=== PATIENT | male | born 1955 | race Caucasian/White ===

== ENCOUNTER 2017-04-19 13:42 | Observation (INO) | payer OTHER ==
[~2017-04-19] VITALS: Ht 172.7 cm; Wt 77.5 kg
[~2017-04-19 13:42] MED LIST: FENO50TA PO; NEXI40CA PO; NORC7.5T PO; PRAV10 PO; WALKER STANDARD; XARE10TA PO
[2017-04-19 13:43] VITALS: BP 111/66; PULSE 84; RESP 18; TEMP 98.4; O2SAT 96
[2017-04-19] MEDS ORDERED: SODIUM CHLORIDE 0.9% FLUSH 10 ML FLUSH IVF PRN (14:45)
[2017-04-19] MEDS ORDERED: SODIUM CHLOR 0.9% 1000 ML INJ 1,000 ML IV ONE (14:45)
[2017-04-19 14:59] VITALS: BP_SYST 102; BP_SYST 104; BP_SYST 112; BP_DIAS 57; BP_DIAS 58; BP_DIAS 65; RESP 18
[2017-04-19 15:03] VITALS: BP 104/58; PULSE 74; O2SAT 98
--- NOTE | 2017-04-19 15:15 | RADRPT ---
EXAM DATE/TIME: 04/19/2017 14:46 [facility] COMPARISON: CHEST SINGLE AP, August 20, 2015, 12:25. INDICATIONS : Chest pain. MEDICAL HISTORY : Gastroesophageal reflux disease. Hypercholesterolemia. SURGICAL HISTORY : Inguinal hernia repair. Tonsillectomy. ENCOUNTER: Initial ACUITY: 1 day PAIN SCORE: 5/10 LOCATION: Bilateral chest FINDINGS: Portable AP view of the chest demonstrates a normal-sized cardiac silhouette. No effusion, consolidat ion, or pneumothorax is visualized. The bones and soft tissues demonstrate no acute abnormality. EKG lines overlie the patient. CONCLUSION: No acute cardiopulmonary abnormality is identified. Ike Swain MD on April 19, 2017 at 15:13 Board Certified Radiologist. This report was verified electronically.
[2017-04-19 15:27] LABS: AUTOMATED NEUTROPHIL # 7.6 TH/MM3 (1.8-7.7); BASOPHIL % 0.2 % (0.0-2.0); EOSINOPHIL % 0.4 % (0.0-4.0); HEMATOCRIT 39.5 % (39.0-51.0); HEMO FLAGS DIFF FINAL; LYMPH % 11.8 % (9.0-44.0); LYMPHOCYTE # 1.1 TH/MM3 (1.0-4.8); MEAN CELL VOLUME 94.9 FL (80.0-100.0); MEAN CORPUSCULAR HEMOGLOBIN 32.6 PG (27.0-34.0); MEAN CORPUSCULAR HGB CONC 34.3 % (32.0-36.0); MONO % 6.7 % (0.0-8.0); NEUT % 80.9 % (16.0-70.0); PLATELET COUNT 244 TH/MM3 (150-450); RED BLOOD COUNT 4.17 MIL/MM3 (4.50-5.90); RED CELL DISTRIBUTION WIDTH 13.4 % (11.6-17.2); WHITE BLOOD COUNT 9.3 TH/MM3 (4.0-11.0)
[2017-04-19 15:41] LABS: ALT (GPT) 60 U/L (12-78); ANION GAP 8 MEQ/L (5-15); AST (GOT) 30 U/L (15-37); BICARBONATE 24.1 MEQ/L (21.0-32.0); BLOOD UREA NITROGEN 27 MG/DL (7-18); CHLORIDE 108 MEQ/L (98-107); GLOMERULAR FILTRATION RATE 77 ML/MIN (>89); POTASSIUM 3.9 MEQ/L (3.5-5.1); SODIUM (NA) 140 MEQ/L (136-145)
[2017-04-19 15:45] LABS: ALKALINE PHOSPHATASE 56 U/L (45-117); TOTAL BILIRUBIN ADULT 0.3 MG/DL (0.2-1.0)
[2017-04-19 15:46] LABS: APTT (PATIENT) 21.4 SEC (24.3-30.1); PROTHROMBIN TIME - PATIENT 10.6 SEC (9.8-11.6)
[2017-04-19] MEDS ORDERED: NALOXONE HCL 0.4 MG/ML AMP IV PUSH PRN (16:00)
[2017-04-19] MEDS ORDERED: ONDANSETRON HCL 4 MG/2 ML VIAL IVP PRN (16:00)
[2017-04-19] MEDS ORDERED: ACETAMINOPHEN 325 MG TAB PO PRN (16:00)
[2017-04-19] MEDS ORDERED: SODIUM CHLORIDE 0.9% FLUSH 10 ML FLUSH IV FLUSH PRN (16:00)
[2017-04-19] MEDS ORDERED: MAGNESIUM HYDROXIDE SUSP 30 ML CUP PO PRN (16:00)
--- NOTE | 2017-04-19 16:03 | PD ---
HPI Chief Complaint: Chest Pain Time Seen by Provider: 14:26 Travel History International Travel<30 days: No Contact w/Intl Traveler<30days: No Traveled to known affect area: No History of Present Illness HPI This 61-year-old man, otherwise fairly healthy, presents to the emergency department complaining of severe chest pain as well some dizziness and near syncope. He states his symptoms been ongoing for couple weeks of intermittent dizziness. He didn't really have chest pain. Today at work he started getting a lot of dizziness lightheadedness and near syncope associated with severe chest pain and. He did just start prazosin today for the first time. History Past Medical History Narrative Medical Hypertension hyperlipidemia GERD Influenza Vaccination: No Social History Alcohol Use: Yes Tobacco Use: No Allergies-Medications (Allergen,Severity, Reaction): Coded Allergies: No Known Allergies (Verified , 01/18/14) Reported Meds & Prescriptions Reported Meds & Active Scripts Active Walker Standard (Device) Device 1 Ea Reported [place] 7.5/325 (Hydrocodone-Acetaminophen) [id number]/7.5 Hydrocodone Tab 1 Tab PO Q4-6H Xarelto (Rivaroxaban) 10 Mg Tab 10 Mg PO DAILY Tricor (Fenofibrate) 145 Mg Tab 145 Mg PO DAILY Pravastatin Sodium 10 Mg Tab 10 Mg PO DAILY Nexium (Esomeprazole Magnesium) 40 Mg Cap 40 Mg PO DAILY Review of Systems Except as stated in HPI: all other systems reviewed are Neg Physical Exam Narrative GENERAL: 60-year-old man, n there is a little bit ill. Skin: Clammy. O acute distress. SKIN: Focused skin assessment warm/dry. HEAD: Atraumatic. Normocephalic. EYES: Pupils equal and round. No scleral icterus. No injection or drainage. ENT: No nasal bleeding or discharge. Mucous membranes pink and moist. NECK: Trachea midline. No JVD. CARDIOVASCULAR: Regular rate and rhythm. Systolic heart murmur heard best on the right sternal border. RESPIRATORY: No accessory muscle use. Clear to auscultation. Breath sounds equal bilaterally. GASTROINTESTINAL: Abdomen soft, non-tender, nondistended. Hepatic and splenic margins not palpable. MUSCULOSKELETAL: No obvious deformities. No edema. NEUROLOGICAL: Awake and alert. No obvious cranial nerve deficits. Motor grossly within normal limits. Normal speech. PSYCHIATRIC: Appropriate mood and affect; insight and judgment normal. Data Data Last Documented VS Vital Signs Date Time Temp Pulse Resp B/P (MAP) Pulse Ox O2 Delivery O2 Flow Rate FiO2 04/19/17 15:03 74 104/58 (73) 04/19/17 15:03 98 04/19/17 15:03 Room Air 04/19/17 14:59 18 18 18 04/19/17 13:43 98.4 Orders Orders Electrocardiogram (04/19/17 ) Electrocardiogram (04/19/17 14:42) Complete Blood Count With Diff (04/19/17 14:42) Comprehensive Metabolic Panel (04/19/17 14:42) Magnesium (Mg) (04/19/17 14:42) Prothrombin Time / Inr (Pt) (04/19/17 14:42) Act Partial Throm Time (Ptt) (04/19/17 14:42) Troponin I (04/19/17 14:42) Chest, Single Ap (04/19/17 14:42) Ecg Monitoring (04/19/17 14:42) Bilateral Bp Monitoring (04/19/17 14:42) Iv Access Insert/Monitor (04/19/17 14:42) Oximetry (04/19/17 14:42) Oxygen Administration (04/19/17 14:42) Sodium Chloride 0.9% Flush (Ns Flush) (04/19/17 14:45) Sodium Chlor 0.9% 1000 Ml Inj (Ns 1000 M (04/19/17 14:45) Orthostatic Vital Signs (04/19/17 14:42) Labs Laboratory Tests Test 04/19/17 14:45 White Blood Count 9.3 TH/MM3 Red Blood Count 4.17 MIL/MM3 Hemoglobin 13.6 GM/DL Hematocrit 39.5 % Mean Corpuscular Volume 94.9 FL Mean Corpuscular Hemoglobin 32.6 PG Mean Corpuscular Hemoglobin Concent 34.3 % Red Cell Distribution Width 13.4 % Platelet Count 244 TH/MM3 Mean Platelet Volume 7.7 FL Neutrophils (%) (Auto) 80.9 % Lymphocytes (%) (Auto) 11.8 % Monocytes (%) (Auto) 6.7 % Eosinophils (%) (Auto) 0.4 % Basophils (%) (Auto) 0.2 % Neutrophils # (Auto) 7.6 TH/MM3 Lymphocytes # (Auto) 1.1 TH/MM3 Monocytes # (Auto) 0.6 TH/MM3 Eosinophils # (Auto) 0.0 TH/MM3 Basophils # (Auto) 0.0 TH/MM3 CBC Comment DIFF FINAL Differential Comment Prothrombin Time 10.6 SEC Prothromb Time International Ratio 1.0 RATIO Activated Partial Thromboplast Time 21.4 SEC Blood Urea Nitrogen 27 MG/DL Creatinine 0.98 MG/DL Random Glucose 124 MG/DL Total Protein 6.6 GM/DL Albumin 3.7 GM/DL Calcium Level 8.8 MG/DL Magnesium Level 2.0 MG/DL Alkaline Phosphatase 56 U/L Aspartate Amino Transf (AST/SGOT) 30 U/L Alanine Aminotransferase (ALT/SGPT) 60 U/L Total Bilirubin 0.3 MG/DL Sodium Level 140 MEQ/L Potassium Level 3.9 MEQ/L Chloride Level 108 MEQ/L Carbon Dioxide Level 24.1 MEQ/L Anion Gap 8 MEQ/L Estimat Glomerular Filtration Rate 77 ML/MIN Troponin I LESS THAN 0.02 NG/ML MDM Medical Decision Making Medical Screen Exam Complete: Yes Emergency Medical Condition: Yes Interpretation(s) My review of EKG: Normal sinus rhythm with marked sinus arrhythmia, normal axis , normal intervals, no acute ischemia. LABS: CBC unremarkable. CMP unremarkable, mildly elevated BUN. Troponins negative. Chest x-rays unremarkable. Differential Diagnosis Aortic stenosis, adverse effect of alpha manda, ACS, dehydration, orthostasis , other Narrative Course Medical decision making INITIAL: 58-year-old male presents with severe chest associated with near syncopal symptoms and lightheadedness/dizziness. Is a systolic murmur that is moderate, possibly aortic stenosis. Possible orthostasis. Spoke with Dr. Mason, with [facility], will admit patient for further evaluation. Diagnosis Primary Impression: Chest pain Additional Impression: Near syncope Admitting Information Admitting Physician Requests: Tejas Das MD Apr 19, 2017 16:03
[2017-04-19] MEDS ORDERED: NEXI40CA PO (16:08)
[2017-04-19] MEDS ORDERED: PANT20TA2 PO (16:08)
[2017-04-19 18:00] VITALS: BP 147/67; PULSE 63; RESP 20; TEMP 98; O2SAT 97
--- NOTE | 2017-04-19 18:45 | HHI.HP ---
HPI Service [facility] Hospitalists Primary Care Physician Patrick Reinoso, DO Admission Diagnosis Chest Pain, Near Syncope Chief Complaint: Chest pain with near syncope Travel History International Travel<30 Days: No Contact w/Intl Traveler <30 Da: No Traveled to Known Affected Are: No History of Present Illness This is a 61-year-old male patient with past medical history which includes allergic rhinitis, GERD, Sena's esophagitis, alcohol abuse, BPH with obstruction, mixed hyperlipidemia, HTN, osteoporotic arthritis of the hip and asthma. Patient since the emergency department today because of severe chest pain. Patient reports he has had intermitted dizziness for the past couple of weeks. Today at work he started getting a lot of dizziness, lightheadedness and near syncope associated with severe left side chest pain. Patient did not have full syncopal episode, there was no LOC. He did just start prazosin today for the first time. Patient denies LOC, fever, chills, cough, shortness of breath or palpitations. Review of Systems Constitutional: DENIES: Fatigue, Fever, Chills Eyes: DENIES: Blurred vision, Diplopia, Vision loss Respiratory: DENIES: Cough, Sputum production, Shortness of breath Cardiovascular: COMPLAINS OF: Chest pain, Syncope (near syncope), DENIES: Palpitations, Dyspnea on Exertion, Lower Extremity Edema Gastrointestinal: DENIES: Abdominal pain, Nausea, Vomiting Neurologic: DENIES: Abnormal gait, Headache, Speech Problems Psychiatric: DENIES: Anxiety, Confusion, Mood changes Past Family Social History Past Medical History allergic rhinitis, GERD, Sena's esophagitis, alcohol abuse, BPH with obstruction, mixed hyperlipidemia osteoporotic arthritis of the hip and asthma. Past Surgical History Panendoscopy with colonoscopy 2008, bilateral renal artery. 2008 and 1990 Reported Medications Walker Standard (Device) Device 1 Ea Pantoprazole (Pantoprazole Sodium) 20 Mg Tab 20 Mg PO DAILY Nexium (Esomeprazole DR) 40 Mg Capdr 40 Mg PO DAILY [place] 7.5-325 mg (Hydrocodone-Acetaminophen 7.5-325 mg) [id number]/7.5 Hydrocodone Tab 1 Tab PO Q4-6H Xarelto (Rivaroxaban) 10 Mg Tab 10 Mg PO DAILY Tricor (Fenofibrate) 145 Mg Tab 145 Mg PO DAILY Pravastatin Sodium (Pravastatin Sod) 10 Mg Tab 10 Mg PO DAILY Nexium (Esomeprazole Magnesium) 40 Mg Cap 40 Mg PO DAILY Allergies: Coded Allergies: No Known Allergies (Verified , 01/18/14) Active Ordered Medications Current Medications Medications (Trade) Dose Ordered Sig/Noemy Route Start Time Stop Time Status Last Admin (NS Flush) 2 ml UNSCH PRN IV FLUSH 04/19/17 16:00 (NS Flush) 2 ml BID IV FLUSH 04/19/17 21:00 (Tylenol) 650 mg Q4H PRN PO 04/19/17 16:00 (Zofran Inj) 4 mg Q6H PRN IVP 04/19/17 16:00 (Narcan Inj) 0.4 mg UNSCH PRN IV PUSH 04/19/17 16:00 (Milk Of Magnesia Liq) 30 ml Q12H PRN PO 04/19/17 16:00 (Pravachol) 10 mg DAILY PO 04/20/17 09:00 (Protonix) 40 mg DAILY PO 04/20/17 09:00 Family History Father at 53 secondary to [place] CAD Social History Patient quit smoking in 1997 prior to that smoked 2 packs a day for 8 years Physical Exam Vital Signs Vital Signs Date Time Temp Pulse Resp B/P (MAP) Pulse Ox O2 Delivery O2 Flow Rate FiO2 04/19/17 18:00 98.0 63 20 147/67 (93) 97 04/19/17 15:03 74 104/58 (73) 04/19/17 15:03 98 04/19/17 15:03 Room Air 04/19/17 14:59 70 18 102/58 (73) 77 18 112/65 (81) 90 18 104/57 (73) 04/19/17 14:59 70 16 98 Room Air 04/19/17 13:43 98.4 84 18 111/66 (81) 96 Room Air Physical Exam GENERAL: This is a well-nourished, well-developed patient, in no apparent distress. SKIN: No rashes, ecchymoses or lesions. Cool and dry. HEAD: Atraumatic. Normocephalic. No temporal or scalp tenderness. EYES: Extraocular motions intact. No scleral icterus. No injection or drainage. CARDIOVASCULAR: Regular rate and rhythm RESPIRATORY: Clear to auscultation. Breath sounds equal bilaterally. GASTROINTESTINAL: Abdomen soft, non-tender, nondistended. No guarding. MUSCULOSKELETAL: Extremities without clubbing, cyanosis, or edema. No joint tenderness, effusion, or edema noted. No calf tenderness. Negative Homans sign bilaterally. NEUROLOGICAL: Awake and alert. No focal deficits noted. Motor and sensory grossly within normal limits. Five out of 5 muscle strength in all muscle groups. Normal speech. Laboratory Laboratory Tests Test 04/19/17 14:45 White Blood Count 9.3 Red Blood Count 4.17 Hemoglobin 13.6 Hematocrit 39.5 Mean Corpuscular Volume 94.9 Mean Corpuscular Hemoglobin 32.6 Mean Corpuscular Hemoglobin Concent 34.3 Red Cell Distribution Width 13.4 Platelet Count 244 Mean Platelet Volume 7.7 Neutrophils (%) (Auto) 80.9 Lymphocytes (%) (Auto) 11.8 Monocytes (%) (Auto) 6.7 Eosinophils (%) (Auto) 0.4 Basophils (%) (Auto) 0.2 Neutrophils # (Auto) 7.6 Lymphocytes # (Auto) 1.1 Monocytes # (Auto) 0.6 Eosinophils # (Auto) 0.0 Basophils # (Auto) 0.0 CBC Comment DIFF FINAL Differential Comment Prothrombin Time 10.6 Prothromb Time International Ratio 1.0 Activated Partial Thromboplast Time 21.4 Blood Urea Nitrogen 27 Creatinine 0.98 Random Glucose 124 Total Protein 6.6 Albumin 3.7 Calcium Level 8.8 Magnesium Level 2.0 Alkaline Phosphatase 56 Aspartate Amino Transf (AST/SGOT) 30 Alanine Aminotransferase (ALT/SGPT) 60 Total Bilirubin 0.3 Sodium Level 140 Potassium Level 3.9 Chloride Level 108 Carbon Dioxide Level 24.1 Anion Gap 8 Estimat Glomerular Filtration Rate 77 Troponin I LESS THAN 0.02 Result Diagram: 04/19/175 04/19/171444 Imaging Last Impressions Chest X-Ray 04/19/17 144 Signed Impressions: Service Date/Time: Wednesday, April 19, 2017 14:46 - CONCLUSION: No acute cardiopulmonary abnormality is identified. MD Gypsy Webb VTE Risk Assessment Caprini VTE Risk Assessment: No/Low Risk (score <= 1) Caprini Risk Assessment Model Point Value = 1 Point Value = 2 Point Value = 3 Point Value = 5 Age 41-60 Minor surgery BMI > 25 kg/m2 Swollen legs Varicose veins or History of unexplained or recurrent spontaneous Oral contraceptives or hormone replacement Sepsis (< 1 month) Serious lung disease, including pneumonia (< 1 month) Abnormal pulmonary function Acute myocardial infarction Congestive heart failure (< 1 month) History of inflammatory bowel disease Medical patient at bed rest Age 61-74 Arthroscopic surgery Major open surgery (> 45 min) Laparoscopic surgery (> 45 min) Malignancy Confined to bed (> 72 hours) Immobilizing plaster cast Central venous access Age >= 75 History of VTE Family history of VTE Factor V Leiden Prothrombin [id number] Lupus anticoagulant Anticardiolipin antibodies Elevated serum homocysteine Heparin-induced thrombocytopenia Other congenital or acquired thrombophilia Stroke (< 1 month) Elective arthroplasty Hip, pelvis, or leg fracture Acute spinal cord injury (< 1 month) Prophylaxis Regimen Total Risk Factor Score Risk Level Prophylaxis Regimen 0-1 Low Early ambulation 2 Moderate Order ONE of the following: *Sequential Compression Device (SCD) *Heparin 5000 units SQ BID 3-4 Higher Order ONE of the following medications: *Heparin 5000 units SQ TID *Enoxaparin/Lovenox 40 mg SQ daily (WT < 150 kg, CrCl > 30 mL/min) *Enoxaparin/Lovenox 30 mg SQ daily (WT < 150 kg, CrCl > 10-29 mL/min) *Enoxaparin/Lovenox 30 mg SQ BID (WT < 150 kg, CrCl > 30 mL/min) AND/OR *Sequential Compression Device (SCD) 5 or more Highest Order ONE of the following medications: *Heparin 5000 units SQ TID (Preferred with Epidurals) *Enoxaparin/Lovenox 40 mg SQ daily (WT < 150 kg, CrCl > 30 mL/min) *Enoxaparin/Lovenox 30 mg SQ daily (WT < 150 kg, CrCl > 10-29 mL/min) *Enoxaparin/Lovenox 30 mg SQ BID (WT < 150 kg, CrCl > 30 mL/min) AND *Sequential Compression Device (SCD) Assessment and Plan Problem List: (1) Chest pain ICD Codes: R07.9 - Chest pain, unspecified Status: Acute Plan: initial troponin <0.02 continue serial troponin initial EKG reviewed and reveals: SR rate 68 bpm, no acute ischemic changes continue serial EKG CXR reviewed and reveals: No acute cardiopulmonary abnormality is identified Continue pravastatin 10 mg PO daily aspirin daily Lipid profile ordered Continuous cardiac telemetry 2 D echocardiogram pending (2) Near syncope ICD Codes: R55 - Syncope and collapse Status: Acute Plan: Patient started just start prazosin today for the first time. Hold prazosin carotid US pending Orthostatic BP Patient has received 2 L NS while in ER PT eval requested see above (3) Murmur, cardiac ICD Codes: R01.1 - Cardiac murmur, unspecified Plan: Patient with new cardiac murmur 2-D echocardiogram ordered Assessment and Plan Patient examined. Assessment and plan formulated with Luli Lentz PA-C. I agree with the above. Luli Lentz Apr 19, 2017 18:45 Pepe Mason DO Apr 20, 2017 12:00
[2017-04-19] MEDS: SODIUM CHLORIDE 0.9% FLUSH 10 ML FLUSH IV FLUSH SCH (20:24)
[2017-04-19] MEDS: ASPIRIN 81 MG CHEW TAB CHEW SCH (20:24)
[2017-04-19 20:44] VITALS: BP 131/77; PULSE 65; RESP 17; TEMP 98.4; O2SAT 96
--- NOTE | 2017-04-19 22:40 | RADRPT ---
EXAM DATE/TIME: 04/19/2017 21:55 [facility] COMPARISON: No previous studies available for comparison. INDICATIONS : Syncope. MEDICAL HISTORY : Hypercholesterolemia. Gastroesophageal reflux disease. Syncope. Arthritis. SURGICAL HISTORY : Inguinal hernia repair. Tonsillectomy. Left hip surgery. Lasix. ENCOUNTER: Initial ACUITY: 1 day PAIN SCORE: 0/10 LOCATION: Bilateral neck PEAK SYSTOLIC VELOCITIES (cm/sec): ICA/CCA RATIO: Right: 0.5 Left: 0.6 ICA: Right: 67 Left: 72 CCA: Right: 128 Left: 117 ECA: Right: 88 Left: 98 VERTEBRAL: Right: 44 antegrade Left: 57 antegrade Elevated flow velocities and ICA/CCA ratios have been found to correlate with increased degrees of vessel stenosis, calculated as percentage of diameter relative to a normal segment of distal ICA/CCA FINDINGS: RIGHT CAROTID: No significant stenosis is visualized. The waveforms are within normal limits. LEFT CAROTID: No significant stenosis is visualized. The waveforms are within normal limits. VERTEBRAL ARTERIES: Antegrade flow is seen in both vertebral arteries. MISCELLANEOUS: None. CONCLUSION: No hemodynamically significant stenosis. Alden Osorio MD on April 19, 2017 at 22:37 Board Certified Radiologist. This report was verified electronically.
[2017-04-19 23:09] LABS: CREATINE KINASE 91 U/L (39-308)
[2017-04-19 23:18] VITALS: BP 118/68; PULSE 65; RESP 17; TEMP 98.2; O2SAT 96
[2017-04-20 04:05] VITALS: BP 110/62; PULSE 64; RESP 17; TEMP 98.2; O2SAT 96
[2017-04-20 04:47] LABS: ANION GAP 8 MEQ/L (5-15); BICARBONATE 24.4 MEQ/L (21.0-32.0); BLOOD UREA NITROGEN 18 MG/DL (7-18); CHLORIDE 111 MEQ/L (98-107); GLOMERULAR FILTRATION RATE 95 ML/MIN (>89); POTASSIUM 3.9 MEQ/L (3.5-5.1); SODIUM (NA) 143 MEQ/L (136-145)
[2017-04-20 04:53] LABS: CREATINE KINASE 84 U/L (39-308)
[2017-04-20 08:13] VITALS: BP 123/84; PULSE 63; RESP 20; TEMP 98.2; O2SAT 96
[2017-04-20] MEDS ORDERED: PRAVASTATIN SOD 10 MG TAB PO SCH (09:00)
[2017-04-20] MEDS ORDERED: PANTOPRAZOLE SOD 40 MG DELAYED RELEASE TAB PO SCH (09:00)
[2017-04-20] MEDS: ASPIRIN 81 MG CHEW TAB CHEW SCH (09:40)
[2017-04-20] MEDS: SODIUM CHLORIDE 0.9% FLUSH 10 ML FLUSH IV FLUSH SCH (09:42)
--- NOTE | 2017-04-20 10:37 | HHI.PR ---
Subjective Remarks Patient reports feeling well denies further chest pain eager to go home Objective Vitals Vital Signs Date Time Temp Pulse Resp B/P (MAP) Pulse Ox O2 Delivery O2 Flow Rate FiO2 04/20/17 08:13 98.2 63 20 123/84 (97) 96 04/20/17 04:05 98.2 64 17 110/62 (78) 96 04/19/17 23:18 98.2 65 17 118/68 (85) 96 04/19/17 20:44 98.4 65 17 131/77 (95) 96 04/19/17 18:00 98.0 63 20 147/67 (93) 97 04/19/17 15:03 74 104/58 (73) 04/19/17 15:03 98 04/19/17 15:03 Room Air 04/19/17 14:59 70 18 102/58 (73) 77 18 112/65 (81) 90 18 104/57 (73) 04/19/17 14:59 70 16 98 Room Air 04/19/17 13:43 98.4 84 18 111/66 (81) 96 Room Air Result Diagram: 04/19/17 1445 04/20/17 0400 Other Results Laboratory Tests Test 04/19/17 14:45 04/19/17 22:30 04/20/17 04:00 White Blood Count 9.3 TH/MM3 Red Blood Count 4.17 MIL/MM3 Hemoglobin 13.6 GM/DL Hematocrit 39.5 % Mean Corpuscular Volume 94.9 FL Mean Corpuscular Hemoglobin 32.6 PG Mean Corpuscular Hemoglobin Concent 34.3 % Red Cell Distribution Width 13.4 % Platelet Count 244 TH/MM3 Mean Platelet Volume 7.7 FL Neutrophils (%) (Auto) 80.9 % Lymphocytes (%) (Auto) 11.8 % Monocytes (%) (Auto) 6.7 % Eosinophils (%) (Auto) 0.4 % Basophils (%) (Auto) 0.2 % Neutrophils # (Auto) 7.6 TH/MM3 Lymphocytes # (Auto) 1.1 TH/MM3 Monocytes # (Auto) 0.6 TH/MM3 Eosinophils # (Auto) 0.0 TH/MM3 Basophils # (Auto) 0.0 TH/MM3 CBC Comment DIFF FINAL Differential Comment Prothrombin Time 10.6 SEC Prothromb Time International Ratio 1.0 RATIO Activated Partial Thromboplast Time 21.4 SEC Blood Urea Nitrogen 27 MG/DL 18 MG/DL Creatinine 0.98 MG/DL 0.82 MG/DL Random Glucose 124 MG/DL 123 MG/DL Total Protein 6.6 GM/DL Albumin 3.7 GM/DL Calcium Level 8.8 MG/DL 8.5 MG/DL Magnesium Level 2.0 MG/DL Alkaline Phosphatase 56 U/L Aspartate Amino Transf (AST/SGOT) 30 U/L Alanine Aminotransferase (ALT/SGPT) 60 U/L Total Bilirubin 0.3 MG/DL Sodium Level 140 MEQ/L 143 MEQ/L Potassium Level 3.9 MEQ/L 3.9 MEQ/L Chloride Level 108 MEQ/L 111 MEQ/L Carbon Dioxide Level 24.1 MEQ/L 24.4 MEQ/L Anion Gap 8 MEQ/L 8 MEQ/L Estimat Glomerular Filtration Rate 77 ML/MIN 95 ML/MIN Troponin I LESS THAN 0.02 NG/ML LESS THAN 0.02 NG/ML LESS THAN 0.02 NG/ML Total Creatine Kinase 91 U/L 84 U/L Imaging Last Impressions Chest X-Ray 04/19/17 1442 Signed Impressions: Service Date/Time: Wednesday, April 19, 2017 14:46 - CONCLUSION: No acute cardiopulmonary abnormality is identified. Ike Swain MD Objective Remarks GENERAL: This is a well-nourished, well-developed patient, in no apparent distress. CARDIOVASCULAR: Regular rate and rhythm RESPIRATORY: Clear to auscultation. Breath sounds equal bilaterally. No wheezes , rales, or rhonchi. GASTROINTESTINAL: Abdomen soft, non-tender, nondistended. Normal active bowel sounds MUSCULOSKELETAL: Extremities without clubbing, cyanosis, or edema. NEURO: Alert & Oriented x4 to person, place, time, situation. Moves all ext x4 A/P Problem List: (1) Chest pain ICD Codes: R07.9 - Chest pain, unspecified Status: Acute Plan: serial troponin less than 0.023 initial EKG reviewed and reveals: SR rate 68 bpm, no acute ischemic changes serial EKG reviewed reveals sinus rhythm no acute ischemic changes noted CXR reviewed and reveals: No acute cardiopulmonary abnormality is identified Continue pravastatin 10 mg PO daily aspirin daily Lipid profile pending Continuous cardiac telemetry 2 D echocardiogram pending (2) Near syncope ICD Codes: R55 - Syncope and collapse Status: Acute Plan: Patient started just start prazosin today for the first time. Hold prazosin carotid US reviewed and reveals no hemodynamically significant stenosis Orthostatic BP reviewed not consistent with orthostatic hypotension Patient has received 2 L NS while in ER PT eval requested and pending see above (3) Murmur, cardiac ICD Codes: R01.1 - Cardiac murmur, unspecified Plan: Patient with new cardiac murmur 2-D echocardiogram obtained but no report available at this time. Patient to follow up with PCP for results Patient doing well. Will DC home with follow up with PCP in 1 weeks terazosin DC'd Flomax prescription given at DC Assessment and Plan Patient examined. Assessment and plan formulated with Luli Lentz PA-C. I agree with the above. serial cardiac enzymes are NOT elevated. Serial EKGs reviewed, NSR, no acute ischemic changes. Cardiology to contact me when Echocardiogram has been read and I will contact the patient if any relevant findings, unlikely. Presenting symptoms likely d/t hypotension with hytrin. I have prescribed trial of flomax for his BPH to be taken at bedtime. Luli Lentz Apr 20, 2017 10:37 Pepe Mason DO Apr 20, 2017 12:03
[2017-04-20] MEDS ORDERED: TAMS5CAP PO (11:43)
[2017-04-20 11:46] LABS: HDL CHOLESTEROL 56.1 MG/DL (40.0-60.0)
--- NOTE | 2017-04-20 11:48 | HHI.DCPOC ---
Discharge Care Plan Diagnosis: (1) Chest pain (2) Near syncope (3) Murmur, cardiac Goals to Promote Your Health * To prevent worsening of your condition and complications * To maintain your health at the optimal level Directions to Meet Your Goals Take your medications as prescribed Follow your dietary instruction Follow activity as directed Keep your appointments as scheduled Take your immunizations and boosters as scheduled If your symptoms worsen call your PCP, if no PCP go to Urgent Care Center or Emergency Room Smoking is Dangerous to Your Health. Avoid second hand smoke Call the 24-hour hour crisis hotline for domestic abuse at Pepe Mason DO Apr 20, 2017 11:48
[2017-04-20 12:12] VITALS: BP 126/80; PULSE 68; RESP 20; TEMP 97.9; O2SAT 96
--- NOTE | 2017-04-20 13:58 | EKG ---
Date Performed: 04/19/2017 Time Performed: 13:54:48 PTAGE: 61 years EKG: Sinus arrhythmia Poor initial anterior forces, which may be normal variant PREVIOUS TRACING : 08/20/2015 12.41 Since previous tracing, R-wave in V2 is diminished, w hich may be due to lead placement, otherwise no significant change. DOCTOR: Yovani Garcia Interpretating Date/Time 04/20/2017 13:57:11
--- NOTE | 2017-04-20 13:59 | EKG ---
Date Performed: 04/19/2017 Time Performed: 22:26:09 PTAGE: 61 years EKG: SINUS BRADYCARDIA WITH SINUS ARRHYTHMIA Poor initial anterior forces, which may be normal v ariant PREVIOUS TRACING : 04/19/2017 13.54 Since previous tracing, no significant change. DOCTOR: Yovani Garcia Interpretating Date/Time 04/20/2017 13:57:53
--- NOTE | 2017-04-20 13:59 | EKG ---
Date Performed: 04/20/2017 Time Performed: 04:09:48 PTAGE: 61 years EKG: Sinus rhythm WITH SINUS ARRHYTHMIA NONSPECIFIC T-WAVE ABNORMALITY BORDERLINE ECG PREVIOUS TRACING : 04/19/2017 22.26 Since previous tracing, Q-waves flattened anterolaterally, otherwise no significant change. DOCTOR: Yovani Garcia Interpretating Date/Time 04/20/2017 13:58:45
--- NOTE | 2017-04-20 14:38 | ECHRPT ---
Indication: MURMUR CONCLUSIONS Normal left ventricular size. Wall thickness is normal. No regional wall motion abnormalities are present. 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 [id number] mitral valve regurgitation. No mitral valve stenosis. Aortic valve sclerosis is present. There is trace tricuspid valve regurgitation. The estimated pulmonary arterial pressure is 21.2 mmHg. BP: / HR: Rhythm: MEASUREMENTS (Male / Female) Normal Values Technical Quality: 2D ECHO LV Diastolic Diameter PLAX 5.1 cm 4.2 - 5.9 / 3.9 - 5.3 cm LV Systolic Diameter PLAX 3.4 cm IVS Diastolic Thickness 1.0 cm 0.6 - 1.0 / 0.6 - 0.9 cm LVPW Diastolic Thickness 1.0 cm 0.6 - 1.0 / 0.6 - 0.9 cm LV Relative Wall Thickness 0.4 RV Internal Dim ED PLAX 2.3 cm LVOT Diameter 2.0 cm LA Systolic Diameter LX 3.9 cm 3.0 - 4.0 / 2.7 - 3.8 cm LV Ejection Fraction MOD 4C 67.0 % LV Ejection Fraction 4C AL 67.5 % M-MODE Aortic Root Diameter MM 3.1 cm DOPPLER AV Peak Velocity 162.0 cm/s AV Peak Gradient 10.5 mmHg LVOT Peak Velocity 107.0 cm/s LVOT Peak Gradient 4.6 mmHg AV Area Cont Eq pk 2.1 cm MV Area PHT 2.5 cm Mitral E Point Velocity 74.0 cm/s Mitral A Point Velocity 54.3 cm/s Mitral E to A Ratio 1.4 LV E' Lateral Velocity 13.0 cm/s Mitral E to LV E' Lateral Ratio 5.7 LV E' Septal Velocity 9.6 cm/s Mitral E to LV E' Septal Ratio 7.7 TR Peak Velocity 167.0 cm/s TR Peak Gradient 11.0 mmHg Right Atrial Pressure 10.0 mmHg Pulmonary Artery Systolic Pressu 21.2 mmHg Right Ventricular Systolic Press 21.2 mmHg PV Peak Velocity 84.2 cm/s PV Peak Gradient 2.8 mmHg FINDINGS LEFT VENTRICLE The left ventricular systolic function is normal with an estimated ejection fraction in the range of 60-65%. Normal left ventricular size. Wall thickness is normal. No regional wall motion abnormalities are present. RIGHT VENTRICLE Normal right ventricular size and systolic function. LEFT ATRIUM The left atrial size is normal. RIGHT ATRIUM The right atrial size is normal. ATRIAL SEPTUM Normal atrial septal thickness without atrial level shunting by limited color doppler interrogation. AORTA The aortic root and proximal ascending aorta are normal in size on limited imaging. MITRAL VALVE Moderate thickening of the mitral valve leaflets. [id number] mitral valve regurgitation. No mitral valve stenosis. AORTIC VALVE Trileaflet aortic valve. No aortic valve stenosis or regurgitation. Aortic valve sclerosis is present. TRICUSPID VALVE Structurally normal tricuspid valve. There is trace tricuspid valve regurgitation. The estimated pulmonary arterial pressure is 21.2 mmHg. PULMONARY VALVE No pulmonary valve regurgitation or stenosis. VESSELS The inferior vena cava is normal in size. PERICARDIUM No pericardial effusion. Tejas Steve MD, FACC (Electronically Signed) Final Date:20 April 2017 14:37
== END 2017-04-20 13:01 | disposition home or self-care (01) ==
LOC: NEPE 13:42 → INTOOBSV 16:05 → NEDA 16:05 → NEPFCDU 17:15
PROVIDERS: ADMIT Hospitalist; ATTEND Hospitalist
DX: R07.9 Chest pain, unspecified (principal); R55 Syncope and collapse; R01.1 Cardiac murmur, unspecified; R42 Dizziness and giddiness; I49.9 Cardiac arrhythmia, unspecified; R00.1 Bradycardia, unspecified; I10 Essential (primary) hypertension; J45.909 Unspecified asthma, uncomplicated; E78.2 Mixed hyperlipidemia; E78.00 Pure hypercholesterolemia, unspecified; K21.9 Gastro-esophageal reflux disease without esophagitis; N40.1 Benign prostatic hyperplasia with lower urinary tract symptoms; M16.10 Unilateral primary osteoarthritis, unspecified hip; M81.0 Age-related osteoporosis without current pathological fracture; Z79.899 Other long term (current) drug therapy
CPT/HCPCS: 71010; 80048; 80053; 80061; 82550; 83735; 84484; 85025; 85610; 85730; 93005; 93306; 93880; 96360; 97161; 99285; G0378; G8987; G8988; J7030